=== PATIENT | male | born 1965 | race Caucasian/White ===

== ENCOUNTER 2025-05-09 08:17 | Emergency (ER) | payer MEDICAID ==
[~2025-05-09] VITALS: Ht 180.3 cm; Wt 80.0 kg
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
[2025-05-09] MEDS ORDERED: NO HOME MEDS (09:45)
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
[2025-05-09] MEDS: TETanus/Pertussis (Acell)/Diphther VAC/PF (Tdap-Adult) 0.5ml syringe IMVAC ONE (11:22)
[2025-05-09 13:15] VITALS: BP 118/72; PULSE 61; RESP 14; TEMP 97.9; O2SAT 96
== END 2025-05-09 13:20 | disposition home or self-care (01) ==
LOC: ER 08:19
DX: S82.092A Other fracture of left patella, initial encounter for closed fracture (principal); F17.200 Nicotine dependence, unspecified, uncomplicated; F12.90 Cannabis use, unspecified, uncomplicated; Z72.89 Other problems related to lifestyle; W18.09XA Striking against other object with subsequent fall, initial encounter; Y93.89 Activity, other specified; Y92.89 Other specified places as the place of occurrence of the external cause; Y99.8 Other external cause status
CPT/HCPCS: 29505; 29515; 73564; 90471; 90715; 99283; A6449